=== PATIENT | female | born 1945 | race Caucasian/White ===

== ENCOUNTER 2020-03-23 09:13 | Emergency (ER) | payer MEDICARE, OTHER, SELFPAY ==
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
[2020-03-23 09:32] VITALS: BP 176/60; PULSE 73; RESP 20; TEMP 36.6; O2SAT 97
--- NOTE | 2020-03-23 10:34 | ED.GENADULT ---
HPI - General Adult General Chief complaint: Extremity Injury, Lower Stated complaint: diabetic wound Time Seen by Provider: 03/23/20 09:39 Source: patient Mode of arrival: ambulatory Limitations: no limitations History of Present Illness HPI narrative: This patient is 74 year old female with history of DM who presents for evaluation of right foot pain and dehydration. She states she has been unable to see her industrial radiographer due to COVID. She has pain to right foot at the location of her calluses. She reports decreased feeling to those areas of her foot. She denies any new injury to her foot. She is also concerned that she is dehydrated. She denies nausea, vomiting, fever, or diarrhea. She has intermittent dizziness but she is unable to specify. She dneies chest pain or sob. Related Data Home Medications Medication Instructions Recorded Confirmed Ca cmb no.8-[id number]-aloe tablet PO 03/23/20 [Vitamin D-3 with Aloe] ascorbic acid (vitamin C) [Vitamin 03/23/20 C] aspirin [Aspir-81] 03/23/20 citalopram mg 03/23/20 cranberry 500 mg PO TID 03/23/20 03/23/20 enalapril maleate 03/23/20 ferrous sulfate 03/23/20 gabapentin 300 mg PO BID 03/23/20 03/23/20 levetiracetam [Keppra] 500 mg PO BID 03/23/20 03/23/20 magnesium oxide 03/23/20 memantine 5 mg PO BID 03/23/20 03/23/20 memantine mg 03/23/20 montelukast 10 mg 03/23/20 pantoprazole 40 mg PO HS 03/23/20 03/23/20 polyethylene glycol 3350 [Miralax] 03/23/20 Allergies Allergy/AdvReac Type Severity Reaction Status Date / Time prednisone Allergy Intermediate SEIZURES Verified 03/23/20 09:42 PER PT. ciprofloxacin [From Cipro] Allergy Confusion Verified 03/23/20 09:42 codeine Allergy Itching Verified 03/23/20 09:42 olanzapine [From Zyprexa] Allergy Unknown Verified 03/23/20 09:42 Sulfa (Sulfonamide Allergy Nausea Verified 03/23/20 09:42 Antibiotics) Review of Systems Review of Systems: All systems reviewed & are unremarkable except as noted in HPI and below Constitutional: Constitutional: Denies chills and Denies fever(s) Cardiovascular: Cardiovascular: Denies chest pain and Denies radiating jaw, neck or arm pain Gastrointestinal: Gastrointestinal: Denies abdominal pain, Denies nausea and Denies vomiting Musculoskeletal: Musculoskeletal: Reports arthralgias PMFSH Past Medical History Medical History (Updated 03/23/20 @ 13:03 by Neena Szymanski MD) Diabetes mellitus Hypertension Seizure Surgical History Surgical History (Updated 03/23/20 @ 12:58 by Neena Szymanski MD) H/O: hysterectomy Social History Social History (Updated 03/23/20 @ 12:59 by Neena Szymanski MD) Smoking status: Never smoker Alcohol intake: never Substance use: never Exam Narrative: Exam Narrative: GENERAL: Well-appearing, well-nourished, and in no acute distress. HEAD: Normocephalic, atraumatic EYES: PERRLA and EOMI, conjunctiva clear without discharge THROAT:Mucous membranes moist, Oropharynx normal without erythema, exudate, peritonsillar swelling or fluctuance NECK: Supple, without lymphadenopathy or mass RESPIRATORY: No respiratory distress, Airway patent, Respirations non-labored, Clear to auscultation without rales, rhonchi or wheeze HEART: Regular rate and rhythm. No murmur heard. Normal peripheral pulses. ABDOMEN: Soft, nontender, nondistended, normal active bowel sounds. No masses. No rebound or guarding, No organomegaly. EXTREMITIES: No edema, normal strength with full range of motion. bilateral foot with calluses to toes, no wound, no erythema SKIN: Warm, dry, normal color without rash NEURO: Alert and oriented x3. CN 2-12 grossly intact. No focal deficits. PSYCH: Normal mood and affect. Course Reevaluation(s) Reevaluation #1: I discussed with patient labs are stable. She does not appear dehydrated but she felt she needs fluid so she was hydrated. Date: 03/23/20 Time: 13:01 Vital Signs Vital signs: Mikki
[2020-03-23 10:44] LABS: Add Urine Microscopic? YES; Appearance Urine Clear (Clear); Bacteria Urine Trace /hpf; Bilirubin Urine Negative (Negative); Blood Urine Negative (Negative); Color Urine Yellow (Yellow); Glucose Urine UA Negative (Negative); Ketones Urine Negative (Negative); Leukocyte Esterase Ur Trace LEU/UL (Negative); Mucus Urine Rare /lpf; Nitrate Urine Negative (Negative); Protein Urine Negative (Negative); RBC Urine 0-2 /hpf (0-2); Specific Grav Ur 1.023 (1.001-1.035); Squamous Epithelial Cell Urine Many /hpf (Few); WBC Urine 0-3 /hpf
[2020-03-23 10:45] LABS: Basophils Absolute Auto 0.1 K/mm3 (0.0-0.1); Basophils Percent Auto 1.1 % (0.2-1.2); Eosinophils Absolute Auto 0.3 K/mm3 (0-0.3); Eosinophils Percent Auto 4.2 % (0-4.4); Hematocrit 40.5 % (37.0-47.0); Immature Granulocyte Absolute 0.01 K/mm3 (0.00-0.031); Immature Granulocyte Percent A 0.2 % (0-0.5); Lymphocytes Absolute Auto 2.14 K/mm3 (0.9-3.2); Lymphocytes Percent Auto 32.9 % (18.3-44.2); Mean Corpuscular HGB Conc 34.6 g/dl (32-36); Mean Corpuscular Hemoglobin 31.5 pg (26-34); Mean Corpuscular Volume 91.2 fl (80-100); Monocytes Absolute Auto 0.4 K/mm3 (0.1-0.6); Monocytes Percent Auto 6.6 % (2.6-8.5); Neutrophils Absolute Auto 3.6 K/mm3 (1.3-6.7); Platelet Count Result 243 k/mm3 (150-375); Red Blood Count 4.44 M/mm3 (4.2-5.4); Red Cell Distribution Width 12.5 % (11.5-14.5); White Blood Count 6.5 K/mm3 (4.5-10.0)
[2020-03-23 11:10] LABS: Alanine Aminotransferase 26 U/L (4-35); Albumin Level 4.3 g/dL (3.5-5.1); Alkaline Phosphatase 96 U/L (38-126); Anion Gap 12.3 mmol/L (7-16); Aspartate Amino Transferase 34 U/L (14-36); Bilirubin,Total 1.2 mg/dL (0.2-1.3); Blood Urea Nitrogen 20 mg/dL (7-17); Calcium 9.3 mg/dL (8.4-10.2); Carbon Dioxide 31 mmol/L (22-30); Chloride 102 mmol/L (98-107); Estimated CRCL calculation 78 ml/min; Estimated Glomerular Filt Rate > 60; Glucose 147 mg/dL (65-105); Potassium 4.3 mmol/L (3.4-5.0); Sodium 141 mmol/L (137-145)
[2020-03-23 11:12] VITALS: BP 158/62; BP 163/29; BP 175/65; PULSE 64; PULSE 68; PULSE 83
[2020-03-23] MEDS: SODIUM CHLORIDE 0.9% IV 1,000 ML 999 ML IV CONT (11:37)
[2020-03-23 13:16] VITALS: BP 181/86; PULSE 90; RESP 22; TEMP 36.8; O2SAT 96
== END 2020-03-23 13:17 | disposition home or self-care (01) ==
PROVIDERS: Emergency Provider General Practice
DX: E11.40 Type 2 diabetes mellitus with diabetic neuropathy, unspecified (principal); L84 Corns and callosities; Z79.82 Long term (current) use of aspirin; I10 Essential (primary) hypertension; M19.071 Primary osteoarthritis, right ankle and foot; M77.31 Calcaneal spur, right foot
CPT/HCPCS: 36415; 73630; 80053; 81001; 85025; 96360; 99283; J7030

== ENCOUNTER 2020-06-21 18:56 | Emergency (ER) | payer OTHER, MEDICARE, SELFPAY ==
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
[2020-06-21 18:54] VITALS: BP 159/80; PULSE 80; RESP 18; TEMP 36.4; O2SAT 94
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
== END 2020-06-21 20:02 | disposition short-term general hospital (02) ==
PROVIDERS: Emergency Provider Emergency Medicine; PCP Internal Medicine Infectious Disease
DX: S06.5X9A Traumatic subdural hemorrhage with loss of consciousness of unspecified duration, initial encounter (principal); Z79.82 Long term (current) use of aspirin; E11.9 Type 2 diabetes mellitus without complications; I10 Essential (primary) hypertension; F03.90 Unspecified dementia, unspecified severity, without behavioral disturbance, psychotic disturbance, mood disturbance, and anxiety; M47.812 Spondylosis without myelopathy or radiculopathy, cervical region; V49.50XA Passenger injured in collision with unspecified motor vehicles in traffic accident, initial encounter
CPT/HCPCS: 70450; 71045; 72125; 72170; 99291

== ENCOUNTER 2021-05-20 19:49 | Emergency (ER) | payer MEDICARE, OTHER, SELFPAY ==
--- NOTE | 2021-05-20 19:57 | ED.WOUNDLAC ---
HPI - Wound/Laceration General Chief Complaint: Extremity Injury, Upper Stated Complaint: infection on thumb Time Seen by Provider: 05/20/21 19:57 Source: patient, family and RN notes reviewed History of Present Illness HPI narrative: Patient is a 75-year-old female who presents the urgent care with complaints of a paronychia to the right thumb. Patient does have a traumatic brain injury and has very uncooperative. Patient's 2 daughters are accompanying her. Patient is screaming curse words throughout the entire appointment. Family states that they noticed it on Tuesday and is gotten much larger just this evening. Denies of any known fevers. No other acute complaints. Family aware of the plan of care. Some parts of this dictation were generated by voice recognition software and may contain typographical and/or grammatical inaccuracies. Related Data Home Medications Medication Instructions Recorded Confirmed Ca cmb no.9-R1-S-8-[id number]-W81-aloe tablet PO 03/23/20 [Vitamin D-3 with Aloe] ascorbic acid (vitamin C) [Vitamin 03/23/20 C] aspirin [Aspir-81] 03/23/20 citalopram mg 03/23/20 cranberry 500 mg PO TID 03/23/20 03/23/20 enalapril maleate 03/23/20 ferrous sulfate 325 mg PO DAILY 03/23/20 levetiracetam [Keppra] 500 mg PO BID 03/23/20 03/23/20 magnesium oxide 03/23/20 memantine 5 mg PO BID 03/23/20 03/23/20 memantine mg 03/23/20 montelukast 10 mg 03/23/20 pantoprazole 40 mg PO HS 03/23/20 03/23/20 polyethylene glycol 3350 [Miralax] 03/23/20 Allergies Allergy/AdvReac Type Severity Reaction Status Date / Time prednisone Allergy Intermediate SEIZURES Verified 05/20/21 20:09 PER PT. ciprofloxacin [From Cipro] Allergy Confusion Verified 05/20/21 20:09 codeine Allergy Itching Verified 05/20/21 20:09 olanzapine [From Zyprexa] Allergy Unknown Verified 05/20/21 20:09 Sulfa (Sulfonamide Allergy Nausea Verified 05/20/21 20:09 Antibiotics) Review of Systems Review of Systems: CONSTITUTIONAL: Denies fever, chills, or sweats. EYES: Denies visual changes, redness, or discharge. ENT: Denies rhinorrhea, congestion, sore throat, or otalgia. CARDIOVASCULAR: Denies chest pain, palpitations, or edema. RESPIRATORY: Denies cough or dyspnea. GASTROINTESTINAL: Denies abdominal pain, nausea, vomiting, or diarrhea. GENITOURINARY: Denies dysuria or hematuria. SKIN: Reports of swelling and tenderness to the right thumb MUSCULOSKELETAL: Denies back pain, joint pain, or myalgia. NEUROLOGIC: Denies headache, numbness, or weakness. All other systems reviewed are negative, except as documented in HPI. [facility] Past Medical History Medical History Diabetes mellitus Hypertension Seizure Surgical History Surgical History (Updated 03/23/20 @ 12:58 by Neena Szymanski MD) H/O: hysterectomy Social History Social History Smoking status: Never smoker Alcohol intake: never Substance use: never Gender identity (if verbalized by the patient): Female Comments At the time of my signature, I reviewed and agree with the nursing past medical, surgical, social, and family history. There is no relevant family history pertinent to the patient complaint. Exam Narrative: GENERAL: This is a well-nourished, well-developed patient, in no apparent distress. HEAD: normocephalic, atraumatic. EYES: PERRL. Sclera clear/white. Vision is grossly intact. EARS: External ears normal NOSE: External nose normal with no obvious nasal discharge, nares without redness, no rhinorrhea. THROAT: Mucous membranes moist NECK: Neck supple RESPIRATORY: Clear to auscultation. Breath sounds equal bilaterally. No wheezes, rales, or rhonchi. SKIN: Large paronychia with hematoma to the radial aspect of the right thumb NEURO: awake, alert, and oriented to person, place and time. There were no obvious focal neurologic abnormalities. E
[2021-05-20 20:03] VITALS: PULSE 81; RESP 16; TEMP 36.6; O2SAT 95
== END 2021-05-20 20:15 | disposition home or self-care (01) ==
PROVIDERS: Emergency Provider Nurse Practitioner Family
DX: L03.011 Cellulitis of right finger (principal); E11.9 Type 2 diabetes mellitus without complications; I10 Essential (primary) hypertension; G40.909 Epilepsy, unspecified, not intractable, without status epilepticus
CPT/HCPCS: 10060; 99213; G0463

== ENCOUNTER 2021-07-25 10:02 | Emergency (ER) | payer MEDICARE, OTHER, SELFPAY ==
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
[2021-07-25 10:13] VITALS: PULSE 112; RESP 18; TEMP 36.2; O2SAT 96
[2021-07-25 10:19] VITALS: BP 160/78
[2021-07-25] MEDS: HALOPERIDOL LACTATE 5 MG/ML VIAL IV PUSH (10:54)
--- NOTE | 2021-07-25 11:13 | PC.NURSE ---
Patient still agitated and combative in room, stating I'll kill you, you son of a bitch.
[2021-07-25 11:14] VITALS: PULSE 110
[2021-07-25 11:23] LABS: Basophils Absolute Auto 0.1 K/mm3 (0.0-0.1); Basophils Percent Auto 0.5 % (0.2-1.2); Eosinophils Absolute Auto 0.4 K/mm3 (0-0.3); Hematocrit 37.9 % (37.0-47.0); Hemoglobin 13.4 g/dL (12.0-15.0); Immature Granulocyte Absolute 0.03 K/mm3 (0.00-0.031); Immature Granulocyte Percent A 0.3 % (0-0.5); Lymphocytes Absolute Auto 1.26 K/mm3 (0.9-3.2); Lymphocytes Percent Auto 13.6 % (18.3-44.2); Mean Corpuscular HGB Conc 35.4 g/dl (32-36); Mean Corpuscular Hemoglobin 32.8 pg (26-34); Mean Corpuscular Volume 92.9 fl (80-100); Mean Platelet Volume 9.2 fl (7.4-10.4); Monocytes Absolute Auto 0.5 K/mm3 (0.1-0.6); Monocytes Percent Auto 5.2 % (2.6-8.5); Neutrophils Absolute Auto 7.1 K/mm3 (1.3-6.7); Neutrophils Percent Auto 76.4 % (45.5-73.1); Platelet Count Result 215 k/mm3 (150-375); Red Blood Count 4.08 M/mm3 (4.2-5.4); Red Cell Distribution Width 12.1 % (11.5-14.5); White Blood Count 9.3 K/mm3 (4.5-10.0)
[2021-07-25 11:33] LABS: Lactic Acid Reflex 1.7 mmol/L (0.7-2.1)
[2021-07-25 11:35] LABS: Alanine Aminotransferase 16 U/L (4-35); Albumin Level 3.9 g/dL (3.5-5.1); Alkaline Phosphatase 83 U/L (38-126); Anion Gap 6 mmol/L (8-16); Aspartate Amino Transferase 23 U/L (14-36); Blood Urea Nitrogen 22 mg/dL (7-17); Calcium 9.7 mg/dL (8.4-10.2); Carbon Dioxide 32 mmol/L (22-30); Chloride 104 mmol/L (98-107); Estimated CRCL calculation 49 ml/min; Estimated Glomerular Filt Rate > 60; Glucose 171 mg/dL (65-110); Potassium 4.5 mmol/L (3.4-5.0); Sodium 142 mmol/L (137-145)
[2021-07-25 12:45] LABS: Add Urine Microscopic? YES; Appearance Urine Clear (Clear); Bilirubin Urine Negative (Negative); Blood Urine Negative (Negative); Calcium Oxalate Crystals Urine Present /hpf; Color Urine Yellow (Yellow); Glucose Urine UA Negative (Negative); Ketones Urine Negative (Negative); Leukocyte Esterase Ur Negative LEU/UL (Negative); Mucus Urine Rare /lpf; Nitrate Urine Negative (Negative); Protein Urine Negative (Negative); RBC Urine 0-2 /hpf (0-2); Squamous Epithelial Cell Urine Rare /hpf (Few); Urobilinogen Urine Negative mg/dL (<2.0); WBC Urine 0-3 /hpf
[2021-07-25 13:13] VITALS: PULSE 66; RESP 18; O2SAT 97
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
[2021-07-25 16:15] VITALS: BP 142/80; PULSE 92; RESP 19; O2SAT 97
== END 2021-07-25 16:15 | disposition home or self-care (01) ==
PROVIDERS: Emergency Provider Emergency Medicine
DX: G40.909 Epilepsy, unspecified, not intractable, without status epilepticus (principal); Z87.820 Personal history of traumatic brain injury; E11.9 Type 2 diabetes mellitus without complications; I10 Essential (primary) hypertension; Z79.4 Long term (current) use of insulin
CPT/HCPCS: 36415; 51701; 71045; 80053; 81001; 83605; 85025; 96374; 99284; J1630

== ENCOUNTER 2022-09-07 19:55 | Emergency (ER) | payer MEDICARE, OTHER, SELFPAY ==
[2022-09-07] VITALS (14 sets, daily range): BP systolic 121–155; BP diastolic 55–98; PULSE 62–90; RESP 12–21; TEMP 36.7; O2SAT 94–99
--- NOTE | ~2022-09-07 | CT_ITS ---
EXAMINATION: CT cervical spine wo con DATE: 09/07/2022 20:31 INDICATION: fall TECHNIQUE: Computed tomography (CT) of the cervical spine was performed without intravenous contrast. Automated exposure control and iterative reconstruction technique were employed. The dose-length pro duct was 902.11 mGy-cm. COMPARISON: None. FINDINGS: Moderate motion artifact. Vertebral Body Alignment: Intact. Stable mild multilevel degenerative listheses. Craniocervical and atlantoaxial alignment: Moderate degenerative change. Alignment intact. Osseous structures/fracture: No evidence of a lytic or blastic process in the visualized spine. No e vidence of acute fracture. . Cervical soft tissues: The paraspinal soft tissues planes are maintained. Degenerative changes: Multilevel severe degenerative disc disease. Multilevel mild-moderate facet art hropathy. Multilevel moderate severe bilateral neural foraminal narrowing and moderate central canal narrowing in the lower cervical spine, degenerative basis. IMPRESSION: Motion limited examination. Within that constraint, no definite acute fracture or traumatic malalignm ent in the cervical spine Reviewed, dictated and finalized at location K. [employer] IMPRESSION: Motion limited examination. Within that constraint, no definite acute fracture or traumatic malalignment in the cervical spine
--- NOTE | ~2022-09-07 | CT_ITS ---
EXAMINATION: CT brain wo con DATE: 09/07/2022 20:28 INDICATION: fall . TECHNIQUE: Computed tomography (CT) of the head was performed without intravenous contrast. The mA wa s adjusted according to patient size. Iterative reconstruction technique was employed. The dose-lengt h product was 983.67 mGy-cm. COMPARISON: 06/21/2026. FINDINGS: Motion artifact which required repeat imaging. No acute intracranial hemorrhage or extra-axial fluid collection. No hydrocephalus, mass, or herniation. No acute ischemic infarct. Unremarkable dural venous sinus attenuation. No acute osseous abnormality. Aerated secretions in the nasopharynx, ethmoid mucosal thickening, the remaining aerated spaces are c lear. Moderate atrophy and severe chronic white matter change. Atherosclerotic intracranial calcification. 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 IMPRESSION: Motion limited examination. No acute intracranial process. Reviewed, dictated and finalized at location K. [employer]
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
[2022-09-07 20:29] LABS: Add Urine Microscopic? YES; Appearance Urine Clear (Clear); Bilirubin Urine Negative (Negative); Blood Urine Negative (Negative); Color Urine Yellow (Yellow); Glucose Urine UA Negative (Negative); Ketones Urine 1+ mg/dL (Negative); Leukocyte Esterase Ur Negative LEU/UL (Negative); Nitrate Urine Negative (Negative); Protein Urine 1+ mg/dL (Negative); Specific Grav Ur >= 1.030 (1.001-1.035); Urobilinogen Urine 0.2 mg/dL (<2.0)
[2022-09-07 20:34] LABS: Bacteria Urine Trace /hpf; Mucus Urine Rare /lpf; Squamous Epithelial Cell Urine Many /hpf (Few); WBC Urine 0-3 /hpf
--- NOTE | 2022-09-07 22:36 | ED.FALL ---
HPI - Fall General Chief Complaint: Fall Stated Complaint: FALL, COMBATIVE Source: family and EMS Mode of arrival: EMS Limitations: altered mental status History of Present Illness HPI Narrative: 77-year-old with a history of traumatic brain injury was brought in from home and EMS with complaints of fall. Patient daughter who is at bedside is the main historian she states that caregiver was trying to get her to use the bathroom and lost her balance and fell and hit her head against the wall. No history of loss of consciousness. According to the daughter patient constantly screams which is her baseline. MD complaint: fall Onset (ago): minute(s) Fall from: standing Place fall occurred: home Loss of consciousness: none Prolonged down time: no Symptoms prior to fall: none Context: other (Lost balance) Location of injury: head Severity: moderate Associated symptoms (after fall): denies Related Data Home Medications Medication Instructions Recorded Confirmed amlodipine 2.5 mg tablet 2.5 mg feeding tube HS 05/20/21 05/20/21 atorvastatin 40 mg tablet 40 mg feeding tube HS 05/20/21 05/20/21 citalopram 10 mg tablet 10 mg feeding tube DAILY 05/20/21 05/20/21 divalproex 125 mg capsule,delayed 1,500 mg PO DAILY 05/20/21 05/20/21 release sprinkle donepezil 5 mg tablet 5 mg feeding tube DAILY 05/20/21 05/20/21 gabapentin 100 mg capsule 100 mg feeding tube HS 05/20/21 05/20/21 insulin detemir U-100 100 unit/mL 10 unit subcut BID 05/20/21 05/20/21 (3 mL) subcutaneous pen (Levemir FlexTouch U-100 Insulin) montelukast 10 mg tablet 10 mg feeding tube HS 05/20/21 05/20/21 omeprazole 40 mg capsule,delayed 40 mg feeding tube BID 05/20/21 05/20/21 release quetiapine 25 mg tablet 25 mg feeding tube QACLUNCH 05/20/21 05/20/21 quetiapine 25 mg tablet 25 mg feeding tube QAM 05/20/21 05/20/21 Allergies Allergy/AdvReac Type Severity Reaction Status Date / Time prednisone Allergy Intermediate SEIZURES Verified 07/25/21 10:19 PER PT. ciprofloxacin [From Cipro] Allergy Confusion Verified 07/25/21 10:19 codeine Allergy Itching Verified 07/25/21 10:19 olanzapine [From Zyprexa] Allergy Unknown Verified 07/25/21 10:19 Sulfa (Sulfonamide Allergy Nausea Verified 07/25/21 10:19 Antibiotics) Review of Systems Review of Systems: ROS unobtainable: Yes unobtainable due to mental status PMFSH Past Medical History Medical History Diabetes mellitus Hypertension Seizure Surgical History Surgical History H/O: hysterectomy Social History Social History Smoking status: Never smoker Alcohol intake: never Substance use: never Gender identity (if verbalized by the patient): Female Exam Narrative: GENERAL: Well-appearing, well-nourished, and in no acute distress. HEAD: Normocephalic, atraumatic. 3 cm laceration occipital area EYES: PERRLA and EOMI. NECK: Supple. CHEST: Clear to auscultation. No respiratory distress. HEART: Regular rate and rhythm. No murmur heard. Normal peripheral pulses. ABDOMEN: Soft, nontender, nondistended, normal active bowel sounds. EXTREMITIES: Normal range of motion. No edema. SKIN: Warm, dry, no rash. NEURO: No focal deficits. Alert PSYCH: Normal mood and affect. Course Course Emergency Course: Patient was given ketamine for sedation as per daughter's request. I did give her 50 mg IM ketamine after which patient was less combative. CT of the head and C-spine was done which was unremarkable. Thoroughly cleaned the area stapled the laceration. Patient's family felt comfortable taking her back home in a private vehicle. Discharge instructions were given. Vital Signs Vital signs: Vital Signs Pulse Rate 90 09/07/22 19:53 Respiratory Rate 14 09/07/22 19:53 Blood Pressure 151/71 H 09/07/22 19:53 Pulse Oximetry 94 08/29
== END 2022-09-07 22:50 ==
PROVIDERS: Emergency Provider Family Medicine
DX: S01.01XA Laceration without foreign body of scalp, initial encounter (principal); E11.9 Type 2 diabetes mellitus without complications; Z79.4 Long term (current) use of insulin; I10 Essential (primary) hypertension; G40.909 Epilepsy, unspecified, not intractable, without status epilepticus; W18.30XA Fall on same level, unspecified, initial encounter
CPT/HCPCS: 12002; 51701; 70450; 72125; 81001; 96365; 99284; J0131